=== PATIENT | female | born 1950 | race Caucasian/White ===

== ENCOUNTER 2017-01-19 12:06 | Day surgery (SDC) | payer MEDICAID ==
[2017-01-19] MEDS ORDERED: MIDAZOLAM HCL 2MG/2ML VIAL IV ONE (15:08)
[2017-01-19] MEDS ORDERED: LIDOCAINE 2% MDV (20MG/ML) 20ML VIAL IV ONE (15:08)
[2017-01-19] MEDS ORDERED: PROPOFOL 10 MG/ML VIAL IV ONE (15:08)
--- NOTE | 2017-01-20 18:30 | Operative Note ---
DATE OF SURGERY: 01/19/2017 OPERATION: COLONOSCOPY to the cecum. INDICATION: Colorectal cancer screening. ANESTHESIA: Intravenous sedation was administered by the department of anesthesiology and included Diprivan titrated to effect. PROCEDURE: Following informed consent from this alert individual including a discussion of the risks and benefits of the procedure and an opportunity for the patient to ask questions, the patient was in the left lateral decubitus position. A digital rectal examination was performed. No abnormalities were noted. Following this, the Olympus [id number] video colonoscope was inserted into the rectum without resistance. The rectal mucosa had a normal appearance with normal folds and distensibility. The sigmoid colon had a few scattered diverticula noted. The colonoscope was then further advanced up through the bowel to the level of the cecum without much difficulty. Throughout the remainder of the bowel, the mucosa appeared normal, the folds were normal, and the bowel was fairly well distensible. The cecum was defined by noting the appendiceal orifice and ileocecal valve. The colon preparation was good. From the base of the cecum, the colonoscope was then withdrawn. The right colon and transverse colon were endoscopically normal. Descending colon and sigmoid colon were free from changes except for diverticulosis involving the sigmoid region. The endoscope was then withdrawn back to a normal rectum. Retroflexion accomplished following air insufflation failed to demonstrate any changes. The endoscope was straightened and withdrawn. The patient tolerated the procedure well and was returned to the recovery area in stable condition. IMPRESSION: 1. Sigmoid diverticulosis. 2. Otherwise unremarkable colonoscopy to the cecum. RECOMMENDATIONS: The patient was advised to have recheck colonoscopy in 10 years' time or sooner should problems arise. Followup will otherwise be with Janay Vincent, nurse practitioner. As always, thank you for allowing me to participate in the care of your patient. CC: EZRA Rosales
== END 2017-01-19 14:15 | disposition home or self-care (01) ==
LOC: HOP 12:06
PROVIDERS: ATTEND Internal Medicine Gastroenterology
DX: Z12.11 Encounter for screening for malignant neoplasm of colon (principal); K57.30 Diverticulosis of large intestine without perforation or abscess without bleeding
CPT/HCPCS: 00810; G0121